=== PATIENT | male | born 1990 | race Caucasian/White ===

== ENCOUNTER 2020-01-15 11:54 | Emergency (ER) | payer BC, SELFPAY ==
--- NOTE | ~2020-01-15 | XR_ITS ---
EXAMINATION: XR hand RT min 3V DATE: 01/15/2020 12:19 INDICATION: Right hand injury and pain. TECHNIQUE: 4 views of right hand were obtained. COMPARISON: Right hand radiograph 09/01/13 FINDINGS: Bone alignment is normal. No fracture. Joint spaces are well maintained. IMPRESSION: 1. Normal right hand. Reviewed, dictated and finalized at location A. IMPRESSION: 1. Normal right hand.
--- NOTE | ~2020-01-15 | XR_ITS ---
EXAMINATION: XR hand LT min 3V DATE: 01/15/2020 12:19 INDICATION: Left hand injury and pain. TECHNIQUE: 4 views of left hand were obtained. COMPARISON: None. FINDINGS: Bone alignment is normal. No acute fracture. There is an old healed fracture of diaphysis o f fifth metacarpal. Joint spaces are well maintained. IMPRESSION: 1. No acute fracture. Reviewed, dictated and finalized at location A. IMPRESSION: 1. No acute fracture.
[2020-01-15 12:00] VITALS: BP 136/75; PULSE 98; RESP 16; TEMP 36.9; O2SAT 99
--- NOTE | 2020-01-15 12:24 | ED.UPPEXIN ---
HPI - Extremity Injury (Upper) General Chief Complaint: Extremity Injury, Upper Stated Complaint: bilateral hand injury Time Seen by Provider: 01/15/20 12:02 History of Present Illness HPI narrative: This is a 29 year old male that presents to the ER for hand injury sustained 2 days ago. Reports he punched a wall with his right hand. Then punched the wall with his left hand. Reports superficial lacerations to the hands. He is up to date on tetanus. Reports right 5th finger and left 3rd finger pain. Reports decreased ROM due to pain. Denies numbness. Related Data Allergies Allergy/AdvReac Type Severity Reaction Status Date / Time No Known Allergies Allergy Unknown Verified 01/15/20 12:05 Review of Systems Review of Systems: Narrative: CONSTITUTIONAL: Denies fever SKIN: Reports laceration MUSCULOSKELETAL: Reports joint pain, and myalgia. NEUROLOGIC: Denies numbness All systems reviewed & are unremarkable except as noted in HPI and below PMFSH Past Medical History Medical History (Updated 01/15/20 @ 12:38 by Kassy Stroud PA-C) History of ADHD Social History Social History (Updated 01/15/20 @ 12:33 by Kassy Stroud PA-C) Substance use: never Exam Narrative: Exam Narrative: GENERAL: Well-appearing, well-nourished, and in no acute distress. HEAD: Normocephalic, atraumatic. EYES: EOMI. EXTREMITIES: Decreased ROM in the right 5th finger and left 3rd finger to due to pain with overlying superficial lacerations at the MCP joints. No erythema or abnormal drainage to suggest infection. Normal radial pulses. Normal sensation SKIN: Warm, dry, no rash. NEURO: No focal deficits. Alert and oriented x3. PSYCH: Normal mood and affect Course Vital Signs Vital signs: Vital Signs Temperature 98.4 F 01/15/20 12:00 Pulse Rate 98 01/15/20 12:00 Respiratory Rate 16 01/15/20 12:00 Blood Pressure 136/75 01/15/20 12:00 Pulse Oximetry 99 01/15/20 12:00 Temperature 98.4 F 01/15/20 12:00 Pulse Rate 98 01/15/20 12:00 Respiratory Rate 16 01/15/20 12:00 Blood Pressure 136/75 01/15/20 12:00 Pulse Oximetry 99 01/15/20 12:00 MDM - Extremity Injury (Upper) MDM Narrative Medical decision making narrative: Presents the emergency department for bilateral hand pain after punching a wall 2 days ago. Bilateral hand x-rays are without acute osseous findings. Patient has superficial lacerations to the area. He is up-to-date on tetanus. Was educated on wound care. He is stable and felt appropriate for further outpatient evaluation. He was given warnings to return to the ER Imaging Data Radiologist's impression: ITS Impressions Hand X-Ray 01/15/20 12:21 IMPRESSION: 1. No acute fracture. Hand X-Ray 01/15/20 12:22 IMPRESSION: 1. Normal right hand. Critical Care Time Critical Care Time Critical Care Time: No Discharge Plan Discharge Clinical Impression: Contusion of hand, right Qualifiers: Encounter type: initial encounter Qualified Code(s): S60.221A - Contusion of right hand, initial encounter Contusion of hand, left Qualifiers: Encounter type: initial encounter Qualified Code(s): S60.222A - Contusion of left hand, initial encounter Patient Disposition: Home, Self-Care Condition: Stable Instructions: Contusion in Adults (ED) Additional Instructions: Return to the emergency department if you experience fever, redness or swelling of your wound, abnormal drainage from your wound, or any other symptoms that are concerning to you. Apply antibiotic ointment daily. Clean with mild soap and water daily. Rest. Ice. Elevate. Tylenol or ibuprofen as needed for pain Follow-up with primary care doctor Follow-up/Referrals: Baldo Flower MD [Physician] - 1 Week PHYSICIAN,FEED ELEVATOR WORKER [Primary Care Provider] -
== END 2020-01-15 12:58 | disposition home or self-care (01) ==
PROVIDERS: Emergency Provider Emergency Medicine
DX: S60.221A Contusion of right hand, initial encounter (principal); S60.222A Contusion of left hand, initial encounter; W22.09XA Striking against other stationary object, initial encounter
CPT/HCPCS: 73130; 99284

== ENCOUNTER 2021-02-24 05:09 | Emergency (ER) | payer SELFPAY ==
--- NOTE | ~2021-02-24 | CT_ITS ---
EXAMINATION: CT lumbar spine wo con DATE: 02/24/2021 06:53 INDICATION: Severe lumbar pain TECHNIQUE: Computed tomography (CT) of the lumbar spine was performed without intravenous contrast. T he dose-length product (DLP) was 651.33 mGy-cm. Iterative reconstruction was used. COMPARISON: None FINDINGS: There is no fracture. There are 2 mm of retrolisthesis of L5 on S1. The vertebral body heig hts are maintained. There is mild posterior disc bulging at L4-5 and L5-S1. The intervertebral disc s pace heights are maintained. The paravertebral soft tissues are normal. IMPRESSION: 1. Mild lumbar spondylosis without acute findings. Reviewed, dictated and finalized at location A. [employer]
[2021-02-24 05:15] VITALS: BP 114/71; PULSE 87; RESP 18; TEMP 36.1; O2SAT 98
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
[2021-02-24] MEDS: KETOROLAC 30 MG/ML VIAL (*BKC) IV PUSH (06:49)
[2021-02-24] MEDS: diazePAM (*CRX) 5 MG TABLET PO (06:49)
[2021-02-24 06:53] VITALS: BP 130/65; PULSE 65; RESP 16; O2SAT 98
--- NOTE | 2021-02-24 07:26 | PC.NURSE ---
pt resting on stretcher with right leg crossed over left. playing on phone. no distress noted.
== END 2021-02-24 08:36 | disposition home or self-care (01) ==
PROVIDERS: Emergency Provider General Practice
DX: M54.16 Radiculopathy, lumbar region (principal); M51.26 Other intervertebral disc displacement, lumbar region
CPT/HCPCS: 72131; 96374; 99284; A9270; J1885

== ENCOUNTER 2022-12-29 15:15 | Emergency (ER) | payer SELFPAY ==
[2022-12-29 15:36] VITALS: BP 142/69; PULSE 89; RESP 18; TEMP 37.6; O2SAT 100
--- NOTE | 2022-12-29 16:12 | ED.DENTAL ---
HPI - Dental/Oral General Chief complaint: Dental/Oral Stated complaint: Abcess Tooth Time Seen by Provider: 12/29/22 16:08 Source: patient Mode of arrival: ambulatory Limitations: no limitations History of Present Illness HPI Narrative: Right lower side dental pain started few days ago, scheduled to see his dentist next, no fever or chills, no headache or trouble swallowing or breathing Teeth map: 1. the 30th 2. Tooth 28 Related Data Allergies Allergy/AdvReac Type Severity Reaction Status Date / Time No Known Allergies Allergy Unknown Verified 12/29/22 15:43 Review of Systems Review of Systems: All systems reviewed & are unremarkable except as noted in HPI and below PMFSH Past Medical History Medical History History of ADHD Patient denies medical problems Surgical History Surgical History No pertinent past surgical history Social History Social History Alcohol intake: never Substance use: never Exam Narrative: General appearance: Well-developed, well-nourished Skin: Normal color Head: Normocephalic, nontraumatic Eyes: Clear conjunctiva ENT: Oropharynx normal, ears normal, nose normal right lower teeth decay, swelling gum, no abscess at this time Neck: Supple, nontender Chest and respiratory: Airway patent, no respiratory distress, no accessory muscle use Heart: Regular rate/rhythm Vascular: Normal peripheral pulses, normal capillary refill. Musculoskeletal: Normal range of motion, nontender back Neurologic: Alert and oriented ?3, ACTUARIAL CONSULTANT is normal as tested, no gross motor deficit Course Vital Signs Vital signs: Vital Signs Temperature 37.6 C H 12/29/22 15:36 Pulse Rate 89 12/29/22 15:36 Respiratory Rate 18 12/29/22 15:36 Blood Pressure 142/69 H 12/29/22 15:36 Pulse Oximetry 100 12/29/22 15:36 Oxygen Delivery Room Air 12/29/22 15:36 Temperature 37.6 C H 12/29/22 15:36 Pulse Rate 89 12/29/22 15:36 Respiratory Rate 18 12/29/22 15:36 Blood Pressure 142/69 H 12/29/22 15:36 Pulse Oximetry 100 12/29/22 15:36 Oxygen Delivery Room Air 12/29/22 15:36 MDM - Dental/Oral MDM Narrative Medical decision making narrative: Patient presents with dental decay/caries, no abscess formation at this time. Patient received 800 mg of ibuprofen and 650 mg of Tylenol prior to discharge. Differential Diagnosis Differential diagnosis: Likely dental caries and toothache Critical Care Time Critical Care Time Critical Care Time: No Discharge Plan Discharge Clinical Impression: Dental caries Patient Disposition: Home, Self-Care Condition: Stable Instructions: Antibiotic Form, Toothache (ED) Additional Instructions: Return if symptoms are worsening , call your dentist for appointment, take Tylenol as as needed for aches and pain, continue home medications. Ibuprofen 800 mg every 8 hours as needed Prescriptions: New penicillin V potassium 500 mg tablet 500 mg PO Q12H Qty: 20 0RF metronidazole 500 mg tablet 500 mg PO Q12H Qty: 14 0RF No Action cyclobenzaprine 10 mg tablet 10 mg PO TID PRN (Reason: muscle spasm) Qty: 14 0RF naproxen 500 mg tablet 500 mg PO BID PRN (Reason: pain) Qty: 30 0RF methylprednisolone [Medrol (Gabe)] 4 mg tablets,dose pack See Rx Instructions .ROUTE .COMPLEX Qty: 21 0RF Rx Instructions: orally per package directions Follow-up/Referrals: PHYSICIAN,TECHNICAL SALES CONSULTANT [Primary Care Provider] - Stand Alone Forms: Work/School Release IP
[2022-12-29] MEDS: IBUPROFEN 400 MG TABLET 800 MG PO (16:18)
[2022-12-29] MEDS: ACETAMINOPHEN 325 MG TABLET 650 MG PO (16:18)
== END 2022-12-29 16:20 | disposition home or self-care (01) ==
PROVIDERS: Emergency Provider Emergency Medicine
DX: K02.9 Dental caries, unspecified (principal)
CPT/HCPCS: 99283; A9270